=== PATIENT | male | born 1940 | race Caucasian/White ===

== ENCOUNTER 2018-05-02 15:55 | Emergency (ER) | payer MEDICARE, OTHER ==
--- NOTE | 2018-05-02 16:00 | ED Physician Documentation ---
PD HPI URI - Stated complaint Stated Complaint: FEVER,COUGH - History obtained from History obtained from: Patient PD PAST MEDICAL HISTORY - Past Surgical History Past Surgical History: No - Present Medications Home Medications: Ambulatory Orders Medication Instructions Recorded Confirmed predniSONE [Deltasone] 40 mg PO DAILY 5 Days tablet 10/05/14 - Allergies Allergies/Adverse Reactions: Allergies Allergy/AdvReac Type Severity Reaction Status Date / Time Tetracyclines AdvReac Nausea Verified 10/05/14 10:57 - Social History Does the pt smoke?: No Smoking Status: Never smoker Does the pt drink ETOH?: No Does the pt have substance abuse?: No - Immunizations Immunizations are current?: No Immunizations: TDAP >10years/unknown Results - Vitals Vitals: Oxygen O2 Source Room air
[2018-05-02 16:07] VITALS: BP 153/83
--- NOTE | 2018-05-02 16:07 | ED Physician Documentation ---
PD HPI URI - Stated complaint Stated Complaint: FEVER,COUGH - History obtained from History obtained from: Patient, Family () - History of Present Illness Timing - onset: Other (Sick for 4 days with nonproductive cough, fevers but no body aches, runny nose or sore throat. His was sick with a similar syndrome prior to that and recovered fully. He is actually improving but is concerned because they are going on a trip tomorrow for 4 days [place].) Review of Systems Constitutional: reports: Fever, Chills. denies: Myalgias, Fatigue Ears: denies: Drainage/discharge Nose: reports: Rhinorrhea / runny nose. denies: Foreign Body Throat: denies: Sore throat Respiratory: reports: Cough. denies: Dyspnea PD PAST MEDICAL HISTORY - Past Surgical History Past Surgical History: No - Present Medications Home Medications: Ambulatory Orders Medication Instructions Recorded Confirmed predniSONE [Deltasone] 40 mg PO DAILY 5 Days tablet 10/05/14 Azithromycin [Zithromax] 1 tab PO DAILY #6 tablet 05/02/18 - Allergies Allergies/Adverse Reactions: Allergies Allergy/AdvReac Type Severity Reaction Status Date / Time Tetracyclines AdvReac Nausea Verified 10/05/14 10:57 - Social History Does the pt smoke?: No Smoking Status: Never smoker Does the pt drink ETOH?: No Does the pt have substance abuse?: No - Immunizations Immunizations are current?: No Immunizations: TDAP >10years/unknown PD ED PE NORMAL - Vitals Vital signs reviewed: Yes - General General: Alert and oriented X 3, No acute distress - HEENT HEENT: Ears normal, Pharynx benign - Neck Neck: Supple, no meningeal sign, No bony TTP - Cardiac Cardiac: RRR, No murmur - Respiratory Respiratory: No respiratory distress, Clear bilaterally - Abdomen Abdomen: Non tender - Neuro Neuro: Alert and oriented X 3, Normal speech - Psych Psych: Normal mood, Normal affect Results - Vitals Vitals: Vital Signs - 24 hr 05/02/18 16:04 Temperature 36.8 C Heart Rate 83 Respiratory 18 Rate Blood Pressure 153/83 H O2 Saturation 99 Oxygen O2 Source Room air - Labs Labs: Laboratory Tests 05/02/18 16:10 Influenza A (Rapid) Negative Influenza B (Rapid) Negative - Rads (name of study) 2v chest Radiology: EMP read contemporaneously (NAD) Departure - Departure Disposition: 01 Home, Self Care Clinical Impression: Viral URI with cough Condition: Good Record reviewed to determine appropriate education?: Yes Instructions: ED Viral Syndrome Prescriptions: Azithromycin [Zithromax] 1 tab PO DAILY #6 tablet Comments: As discussed. Your syndrome sounds viral. I would not start the antibiotics currently. But since you are traveling you now have a [id number] type prescription so if you are not improving over the next couple of days or if you worsen you can start it at that time. Your blood pressure was elevated today on check into the emergency department. This does not mean that you have hypertension, it is a common phenomenon to come to the emergency department and have elevated blood pressure. I recommend that you see your primary care physician within the week to have it rechecked when you are feeling better.
--- NOTE | 2018-05-02 16:47 | XRAY Report ---
Reason: cough Procedure Date: 05/02/2018 Accession Number: [id number] / [id number] Procedure: XR - Chest 2 View X-Ray CPT Code: 05599 FULL RESULT: EXAM: CHEST RADIOGRAPHY EXAM DATE: 05/02/2018 04:23 PM. CLINICAL HISTORY: Cough. COMPARISON: None. TECHNIQUE: 2 views. FINDINGS: Lungs/Pleura: No focal consolidation. No pleural effusion. No pneumothorax. The lungs are hyperinflated. Mediastinum: Heart and mediastinal contours are normal. Other: None. IMPRESSION: No acute cardiopulmonary abnormality. RADIA
== END 2018-05-02 16:56 | disposition home or self-care (01) ==
LOC: ED 15:55
DX: J06.9 Acute upper respiratory infection, unspecified (principal); R03.0 Elevated blood-pressure reading, without diagnosis of hypertension
CPT/HCPCS: 71046; 87275; 87276; 99283

== ENCOUNTER 2019-12-06 16:28 | Emergency (ER) | payer MEDICARE, OTHER ==
[2019-12-06] MEDS ORDERED: ASPIRIN CHEW 81 MG TABLET PO STA (16:50)
[2019-12-06] MEDS ORDERED: METOPROLOL TARTRATE 25 MG TABLET PO STA (16:50)
--- NOTE | 2019-12-06 16:53 | ED Physician Documentation ---
PD HPI CHEST PAIN - Stated complaint Stated Complaint: HEART BURN - Chief complaint Chief Complaint: Cardiac - History obtained from History obtained from: Patient, Family - Additional information Additional information: 79-year-old gentleman with no known history of coronary disease. Had a remote (about 35 years ago) stress test that was negative per him. Today he was walking up the driveway carrying groceries and he developed substernal chest burning with diaphoresis and shortness of breath. It lasted about 10 minutes and he is pain-free now. He has had milder episodes over the last few days. At the time of my evaluation he confirms that he is pain-free with no symptoms. I discussed his EKG with him, he says he is had abnormal EKGs in the past and we will try to get a prior one from his primary care physician's office. He also admits to a history of murmur. Review of Systems Ten Systems: 10 systems reviewed and negative Constitutional: reports: Reviewed and negative Throat: reports: Reviewed and negative Cardiac: reports: Chest pain / pressure. denies: Palpitations Respiratory: reports: Dyspnea. denies: Cough PD PAST MEDICAL HISTORY - Past Medical History Cardiovascular: None Respiratory: None Neuro: None Endocrine/Autoimmune: None GI: None : None HEENT: None Psych: None Musculoskeletal: None Derm: None - Past Surgical History Past Surgical History: No - Present Medications Home Medications: Ambulatory Orders Medication Instructions Recorded Confirmed predniSONE [Deltasone] 40 mg PO DAILY 5 Days tablet 10/05/14 Azithromycin [Zithromax] 1 tab PO DAILY #6 tablet 05/02/18 - Allergies Allergies/Adverse Reactions: Allergies Allergy/AdvReac Type Severity Reaction Status Date / Time Tetracyclines AdvReac Nausea Verified 12/06/19 16:35 - Social History Does the pt smoke?: No Smoking Status: Never smoker Does the pt drink ETOH?: No Does the pt have substance abuse?: No - Immunizations Immunizations are current?: No Immunizations: TDAP >10years/unknown - POLST Patient has POLST: No PD ED PE NORMAL - Vitals Vital signs reviewed: Yes - General General: Alert and oriented X 3, No acute distress - HEENT HEENT: PERRL, EOMI - Neck Neck: Supple, no meningeal sign, No bony TTP - Cardiac Cardiac: RRR, Other (3 out of 6 decrescendo systolic murmur heard best at the right upper sternal border) - Respiratory Respiratory: No respiratory distress, Clear bilaterally - Abdomen Abdomen: Soft, Non tender - Back Back: No CVA TTP, No spinal TTP - Derm Derm: Normal color, Warm and dry - Extremities Extremities: No edema, No calf tenderness / cord - Neuro Neuro: Alert and oriented X 3, Normal speech Results - Vitals Vitals: Vital Signs - 24 hr 12/06/19 12/06/19 12/06/19 16:30 17:05 17:31 Temperature 35.9 C L Heart Rate 82 91 85 Respiratory 18 15 18 Rate Blood Pressure 141/84 H 136/91 H 104/68 O2 Saturation 99 100 100 12/06/19 12/06/19 12/06/19 18:00 18:30 19:00 Temperature Heart Rate 82 71 70 Respiratory 17 12 15 Rate Blood Pressure 127/85 H 123/80 116/75 O2 Saturation 96 100 98 12/06/19 12/06/19 12/06/19 19:30 20:00 20:04 Temperature 37.1 C Heart Rate 75 71 70 Respiratory 14 13 14 Rate Blood Pressure 123/73 122/75 122/75 O2 Saturation 97 99 99 Oxygen O2 Source Room air - EKG (time done) 1644 Rate: Rate (enter#) (94) Rhythm: NSR [place]: Normal Intervals: Prolonged MT, RBBB, Other (LAFB) QRS: Normal Ischemia: ST elevation c/w ischemia (avr), ST depression (inf/lat) Compare to prior EKG: Changed from prior EKG (Previously twelve-lead EKG received from the clinic thanks to Dr. Gibbons, dated 03/10. At that time he was in sinus rhythm with a right bundle branch block. He did not have the ischemic changes seen today.) 1730 Rate: Rate (enter#) (87) Rhythm: NSR [place]: Normal Intervals: Prolonged MT, RBBB, Other (LAFB) Compare to prior EKG: Unchanged from prior EKG (Ischemic EKG segments, especially ST depression anterior lateral and ST elevation and are only are present again without significant interval change from first EKG.) Computer interpretation: Agree with computer - Labs Labs: Laboratory Tests 12/06/19 12/06/19 12/06/19 16:54 16:54 16:54 WBC 6.9 RBC 4.28 L Hgb 13.6 L Hct 41.6 L MCV 97.2 H MCH 31.8 H MCHC 32.7 RDW 13.4 Plt Count 188 MPV 10.5 Neut # (Auto) 4.7 Lymph # (Auto) 1.5 [place] # (Auto) 0.6 Eos # (Auto) 0.1 Baso # (Auto) 0.0 Absolute Nucleated RBC 0.00 Nucleated RBC % 0.0 Sodium 137 Potassium 3.8 Chloride 100 L Carbon Dioxide 26 Anion Gap 11.0 BUN 22 H Creatinine 1.2 Estimated GFR (MDRD) 59 L Glucose 146 H Calcium 9.5 Total Bilirubin 0.7 AST 31 ALT 25 Alkaline Phosphatase 73 Troponin I High Sens 639.7 H* Total Protein 7.8 Albumin 4.6 Globulin 3.2 Albumin/Globulin Ratio 1.4 Lipase 32 12/06/19 19:08 WBC RBC Hgb Hct MCV MCH MCHC RDW Plt Count MPV Neut # (Auto) Lymph # (Auto) [place] # (Auto) Eos # (Auto) Baso # (Auto) Absolute Nucleated RBC Nucleated RBC % Sodium Potassium Chloride Carbon Dioxide Anion Gap BUN Creatinine Estimated GFR (MDRD) Glucose Calcium Total Bilirubin AST ALT Alkaline Phosphatase Troponin I High Sens 4380.9 H* Total Protein Albumin Globulin Albumin/Globulin Ratio Lipase - Rads (name of study) 1v cxr Radiology: EMP read contemporaneously (Mild interstitial prominence) PD MEDICAL DECISION MAKING - ED course ED course: 79-year-old gentleman presents with resolved chest pain episode, exertional, very concerning in its pattern and sounds like crescendo angina. His EKG is also very concerning, he says he has had prior EKGs that were abnormal and we will try to get a prior one from his primary care physician's office. That said he is pain-free now so he was not triggered as a STEMI code. Subsequently he did develop mild pain his EKG was done again without significant interval change. About that time, the troponin was resulted at 609. Clearly this is all consistent with ongoing intermittent ischemia and [facility] was called for transport. Heparin and nitroglycerin were started. He had already received metoprolol and aspirin at that juncture. Notified apprx 3966 that Prov was full, d/w pt and , will call Royce Hamilton. Update by Dr. Donovan to [facility] at 6:30 PM and cobras were completed. Second troponin had gone up significantly from 639 -> 4380. He continued to be pain-free though. As such a STEMI code was considered at times but still not activated. - Critical Care Time(min): 40 Time Includes: Direct patient care, Review records, Reassess patient, Document care, Coordinate care, Medical consult, Family consult for tx dec Data interpretation: Labs, Pulse ox Procedures included in critical care time: Peripheral IV Procedures excluded from critical care time: EKG Departure - Departure Disposition: 02 Transfer Acute Care Hosp Clinical Impression: NSTEMI (non-ST elevated myocardial infarction) Condition: Serious Discharge Date/Time: 12/06/19 20:30
[2019-12-06 17:05] LABS: BASOPHILS % (AUTO) 0.4 %; EOSINOPHILS # (AUTO) 0.1 10^3/uL (0.0-0.7); HGB - HEMOGLOBIN 13.6 g/dL (14.0-18.0); LYMPHOCYTES # (AUTO) 1.5 10^3/uL (1.5-3.5); LYMPHOCYTES % (AUTO) 21.3 %; MEAN CORPUSCULAR HEMOGLOBIN 31.8 pg (27.0-31.0); MEAN CORPUSCULAR HGB CONC 32.7 g/dL (32.0-36.0); MEAN CORPUSCULAR VOLUME 97.2 fL (80.0-94.0); MEAN PLATELET VOLUME 10.5 fL (7.4-11.4); MONOCYTES # (AUTO) 0.6 10^3/uL (0.0-1.0); MONOCYTES % (AUTO) 8.3 %; NEUTROPHILS # (AUTO) 4.7 10^3/uL (1.5-6.6); NEUTROPHILS % (AUTO) 68.7 %; PLT - PLATELET COUNT 188 10^3/uL (130-450); RED BLOOD COUNT 4.28 10^6/uL (4.70-6.10); RED CELL DISTRIBUTION WIDTH 13.4 % (12.0-15.0); WHITE BLOOD COUNT 6.9 x10^3/uL (4.8-10.8)
[2019-12-06 17:18] LABS: ALBUMIN 4.6 g/dL (3.2-5.5); ALBUMIN/GLOBULIN RATIO 1.4 (1.0-2.2); BILIRUBIN,TOTAL 0.7 mg/dL (0.2-1.0); CALCIUM 9.5 mg/dL (8.5-10.3); CREATININE 1.2 mg/dL (0.6-1.2); TOTAL PROTEIN 7.8 g/dL (6.7-8.2)
--- NOTE | 2019-12-06 17:23 | XRAY Report ---
PROCEDURE: Chest 1 View X-Ray INDICATIONS: Chest pain TECHNIQUE: One view of the chest was acquired. COMPARISON: 2 view chest 05/02/2018. FINDINGS: Surgical changes and devices: None. Lungs and pleura: No pleural effusions or pneumothorax. Lungs are abnormal with a mild interstitial prominence unchanged considering reduced inspiratory volume for the current study versus the deep in spiratory two-view chest comparison from May 2018. Mediastinum: Mediastinal contours appear normal. Heart size is normal. Bones and chest wall: No suspicious bony lesions. Overlying soft tissues appear unremarkable. IMPRESSION: Chronic mild interstitial prominence accentuated by reduced inspiratory volume on the current study. No definite acute disease, source of chest pain is not seen. Reviewed by: Nam Maddox MD on 12/06/2019 5:22 PM PDT Approved by: Nam Maddox MD on 12/06/2019 5:22 PM PDT Station ID: [id number]
[2019-12-06] MEDS ORDERED: HEPARIN 25000UNITS/500ML (D5W) 25,000 UNIT/500 ML BAG IV STA (17:35)
[2019-12-06] MEDS ORDERED: HEPARIN 5,000 UNIT/ML VIAL IVP STA (17:35)
[2019-12-06] MEDS ORDERED: NITROGLYCERIN 50 MG/250 ML 50 MG/250 ML BOTTLE IV SCH (18:00)
[2019-12-06] MEDS ORDERED: CALCIUM CARBONATE CHEW 500 MG TABLET PO STA ×2 (18:20→19:58)
[2019-12-06 20:05] VITALS: BP 122/75
== END 2019-12-06 20:30 | disposition short-term general hospital (02) ==
LOC: ED 16:28
DX: I21.4 Non-ST elevation (NSTEMI) myocardial infarction (principal); I45.2 Bifascicular block; I44.0 Atrioventricular block, first degree
CPT/HCPCS: 36415; 71045; 80053; 83690; 84484; 85025; 93005; 96374; 96375; 99285; 99291; A9270

== ENCOUNTER 2019-12-06 20:31 | Outpatient (CLI) | payer MEDICARE, OTHER | END 2019-12-06 20:32 | disposition short-term general hospital (02) | LOC: EMS 20:31 | PROVIDERS: ATTEND Surgery | DX: I21.4 Non-ST elevation (NSTEMI) myocardial infarction (principal) | CPT/HCPCS: A0425; A0426 ==

== ENCOUNTER 2019-12-21 12:19 | Outpatient (CLI) | payer MEDICARE, OTHER | END 2019-12-21 12:20 | disposition short-term general hospital (02) | LOC: EMS 12:19 | PROVIDERS: ATTEND Surgery | DX: R55 Syncope and collapse (principal) | CPT/HCPCS: A0425; A0427 ==

== ENCOUNTER 2019-12-24 11:40 | Outpatient (CLI) | payer MEDICARE, OTHER ==
[2019-12-24 12:46] LABS: BILIRUBIN,URINE NEGATIVE (NEGATIVE); GLUCOSE, URINE (UA) NEGATIVE (NEGATIVE); KETONES,URINE (UA) TRACE mg/dL (NEGATIVE); LEUKOCYTE ESTERASE, URINE NEGATIVE (NEGATIVE); NITRITE,URINE NEGATIVE (NEGATIVE); OCCULT BLOOD,URINE NEGATIVE (NEGATIVE); PH,URINE 5.5 PH (5.0-7.5); PROTEIN,URINE NEGATIVE (NEGATIVE); UROBILINOGEN,URINE 0.2 (NORMAL) E.U./dL (NORMAL)
[2019-12-24 12:48] LABS: CLARITY,URINE CLEAR (CLEAR)
== END 2019-12-24 23:59 | disposition home or self-care (01) ==
LOC: LAB.R 11:40
PROVIDERS: ATTEND Internal Medicine
DX: N39.0 Urinary tract infection, site not specified (principal)
CPT/HCPCS: 81001; 81003; 87086